=== PATIENT | male | born 2000 | race Caucasian/White ===

== ENCOUNTER 2020-05-12 07:02 | Emergency (ER) | payer OTHER ==
[~2020-05-12] VITALS: Ht 170.2 cm; Wt 72.6 kg
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
--- NOTE | 2020-05-12 07:17 | NUR ---
DR CERVANTES AT BEDSIDE FOR EVAL.
[2020-05-12] MEDS ORDERED: OLANZAPINE 10 MG VIAL IM ONE ×2 (07:18→07:30)
[2020-05-12] MEDS ORDERED: LORAZEPAM INJ 2 MG/ML VIAL ONE ×2 (07:18→14:20)
[2020-05-12] MEDS ORDERED: diphenhydrAMINE HCL 50 MG/ML VIAL ONE ×2 (07:18→14:20)
[2020-05-12] MEDS ORDERED: diphenhydrAMINE HCL 50 MG/ML VIAL IM ONE ×2 (07:30→14:00)
[2020-05-12] MEDS ORDERED: LORAZEPAM INJ 2 MG/ML VIAL IM ONE ×2 (07:30→14:00)
[2020-05-12] MEDS ORDERED: TDAP [DIPH/PERTUSSIS/TET] 0.5 ML VIAL IM ONE ×2 (07:30→07:40)
[2020-05-12] MEDS ORDERED: BACITRACIN ZINC OINT PACKET 1 EA PACKET TP ONE (07:30)
[2020-05-12 07:42] LABS: BASOPHILS # (AUTO) 0.1 /CMM (0.0-0.2); BASOPHILS % (AUTO) 0.2 % (0.0-2.0); EOSINOPHILS % (AUTO) 0.7 % (0.0-6.0); HEMATOCRIT 50 % (39-51); LYMPHOCYTES # (AUTO) 4.9 /CMM (0.8-4.8); LYMPHOCYTES % (AUTO) 22.7 % (20.0-44.0); MEAN CORPUSCULAR HGB CONC 32 g/dl (31.0-36.0); MEAN CORPUSCULAR VOLUME 92 fL (80-96); MONOCYTES # (AUTO) 2.1 /CMM (0.1-1.30); MONOCYTES % (AUTO) 9.5 % (2.0-12.0); NEUTROPHILS # (AUTO) 14.5 /CMM (1.8-8.9); NEUTROPHILS % (AUTO) 66.9 % (43.0-81.0); PLATELET COUNT (AUTO) 366 /CMM (150-450); WHITE BLOOD COUNT (AUTO) 21.7 K/uL (4.3-11.0)
--- NOTE | 2020-05-12 07:46 | NUR ---
PULLED OUT HIS PIV,CATH INTACT,PRESSURE DRESSING APPLIED
[2020-05-12 09:29] LABS: ALBUMIN 5.2 g/dL (3.4-5.0); BILIRUBIN,DIRECT 0.1 mg/dL (0.0-0.2); BILIRUBIN,TOTAL 0.5 mg/dL (0.2-1.0); TOTAL PROTEIN, SERUM 8.8 g/dL (6.4-8.2)
[2020-05-12 09:40] LABS: CALCIUM, SERUM 9.9 mg/dL (8.5-10.1); CREATININE 1.5 mg/dL (0.6-1.3); POTASSIUM 3.9 mmol/L (3.5-5.1)
--- NOTE | 2020-05-12 11:09 | NUR ---
call from Emily Espitia,[phone], used to stay at [facility]. Would like to be called once he's cleared and would like to help with placement.
--- NOTE | 2020-05-12 12:15 | NUR ---
Patient is resting comfortably in bed with eyes closed. Easily aroused. VSS
--- NOTE | 2020-05-12 13:28 | NUR ---
CALLED ASSEMBLY PRESS OPERATOR [facility] EVAL.
--- NOTE | 2020-05-12 13:49 | NUR ---
PT NOW AWAKE, STILL AGITATED AND AGRESSIVE. TRANSFERED TO ROOM [address] CERVANTES AWARE.
[2020-05-12] MEDS ORDERED: HALOPERIDOL LACTATE INJ 5 MG/ML VIAL IM ONE (14:00)
[2020-05-12] MEDS ORDERED: HALOPERIDOL LACTATE INJ 5 MG/ML VIAL ONE (14:20)
--- NOTE | 2020-05-12 14:32 | NUR ---
PT STILL AGITATED, SCREAMING TO STAFF & TRYING TO GET OFF HIS RESTRAINTS. MEDICATED PER ERMD ORDER. SITTER AT BS & WILL CONT TO MONITOR.
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
--- NOTE | 2020-05-12 14:59 | NUR ---
[facility] BLACK OFF WORKER CALLED FOR EVAL INSTEAD PER DR CERVANTES
--- NOTE | 2020-05-12 15:38 | NUR ---
COVID RESULT: NEGATIVE
--- NOTE | 2020-05-12 16:00 | NUR ---
PT ASLEEP, EASILY AWAKEN BY VERBAL STIMULI. RR EVEN & UNLABORED. NAD NOTED AT THIS TIME. WILL CONT TO MONITOR.
--- NOTE | 2020-05-12 16:10 | NUR ---
ART, HEALTHCARE ACCOUNT MANAGER AT FOR EVAL.
--- NOTE | 2020-05-12 16:10 | NUR ---
Social Service Consult: nutrition services associate consult requested for aggressive behavior. Patient is a 20-year-old, white male. SW met with the patient at his hospital bed in the emergency department. Patient is alert and oriented x4. Patient is disheveled and has dried blood all over his clothing. Patient presents tearful and anxious as evidenced by his statement can I please have my phone so I can text my girlfriend and can you get my arm out of this restraint? Patient is currently on a 5150 psychiatric hold and was brought into the emergency department by JESSICA on 05/12/2020. Patient stated that he was having an argument with his significant other and due to feeling distressed the patient began to cut his wrists with a razor blade. Patients SW met with patient and asked if the patient is currently experiencing suicidal or homicidal ideations. Patient denies any current suicidal or homicidal ideations. Per chart, patient has a history of Schizophrenia and substance abuse. Patient denies any current hallucinations or delusions. SW asked the patient about his substance use and patient stated that he was recently discharged from a drug rehab four days ago. Patient stated he was at [facility] ([address] [place] [id number]; ). Patient stated that he uses Fentanyl and Methamphetamine daily and stated that he uses the substance multiple times per day. Patient also stated that he was drunk before he was admitted and has daily alcohol use. SW asked the patient about his prior living arrangements. Patient stated he was living with his significant other. Patient stated that he plans to go to another rehab facility in a few days as he knows someone who works at a facility. SW offered the patient substance abuse resources, and the patient declined at this time. PLAN: SW consulted with patients physician Dr. Edwards and director Serina De Paz LCSW who agreed that the patient requires a crisis evaluation. SW contacted perfume and toilet water maker, Patrick Townsend LCSW ([phone]) to arrange an evaluation. nutrition services associate will continue to follow up with perfume and toilet water maker and nursing staff to discuss the patients plan of care and ensure a safe discharge.
--- NOTE | 2020-05-12 18:50 | NUR ---
CALLED [employer] CABLE RESPOOLER FOR EVAL. ETA 1 HOUR.
--- NOTE | 2020-05-12 18:53 | NUR ---
PT CALM & COOPERATIVE, GIVEN MEAL. WILL CONT TO MONITOR.
--- NOTE | 2020-05-12 20:00 | NUR ---
SHIP MANAGER OCTAVIO DEAN AT BEDSIDE FOR EVALUATION
--- NOTE | 2020-05-12 21:48 | NUR ---
PER CROCHETER OCTAVIO DEAN, CLINICAL INFORMATION FAXED TO [facility], [facility], [facility], AND [facility]. WILL FOLLOW UP REGARDING POSSIBLE TRANSFER INFORMATION
--- NOTE | 2020-05-12 22:33 | NUR ---
Patient is resting comfortably in bed with eyes closed. Easily aroused. VSS
--- NOTE | 2020-05-12 22:34 | NUR ---
SPOKE WITH FILIPPO FROM [facility]. NO BED AVAILABLE AT THIS TIME. MD DAWN
--- NOTE | 2020-05-12 22:46 | NUR ---
TRANSFER INFORMATION: PT ACCEPTED TO [facility] [address] [facility] ACCEPTING MD: DR. RAMOS NUMBER FOR REPORT: [phone] EXT 270 UNIT 2
--- NOTE | 2020-05-12 22:52 | NUR ---
[facility] ETA 30 MINUTES
--- NOTE | 2020-05-12 23:01 | NUR ---
SPOKE WITH CHRISTAL FROM [facility]. NEW ETA 0000
--- NOTE | 2020-05-12 23:07 | NUR ---
REPORT GIVEN TO OCTAVIO VÁSQUEZ AT [facility].
--- NOTE | 2020-05-13 01:07 | NUR ---
REPORT GIVEN TO [facility] FOR [facility]SP[facility]
[2020-05-13 01:11] VITALS: BP 120/82
== END 2020-05-13 01:11 ==
LOC: EDBD 07:05 → ER 07:05
DX: F23 Brief psychotic disorder (principal); F15.10 Other stimulant abuse, uncomplicated; F13.10 Sedative, hypnotic or anxiolytic abuse, uncomplicated; F12.10 Cannabis abuse, uncomplicated; S61.512A Laceration without foreign body of left wrist, initial encounter; X78.8XXA Intentional self-harm by other sharp object, initial encounter; Y92.89 Other specified places as the place of occurrence of the external cause; D72.829 Elevated white blood cell count, unspecified; Z20.822 Contact with and (suspected) exposure to COVID-19; E87.2 Acidosis; N28.9 Disorder of kidney and ureter, unspecified
CPT/HCPCS: 36415; 80048; 80076; 80299; 80307; 80320; 85025; 87426; 90471; 90715; 96372 ×2; 99285; A6403; C9803; J1200 ×2; J1630; J2060 ×2; J3490; G0480